=== PATIENT | male | born 1990 | race African-American/Black ===

== ENCOUNTER 2017-06-18 16:39 | Emergency (ER) | payer SELFPAY ==
[~2017-06-18] VITALS: Ht 162.6 cm; Wt 61.2 kg
[2017-06-18 16:52] VITALS: BP 111/59
[2017-06-18] MEDS ORDERED: IBUPROFEN 800 MG TABLET. PO ONE (17:00)
--- NOTE | 2017-06-18 17:23 | PHYS DOC ---
Past Medical History Past Medical History: No Pertinent History Past Surgical History: No Surgical History Alcohol Use: None Drug Use: None Adult General Chief Complaint Chief Complaint: ANKLE PROBLEM HPI HPI Patient is a 27 year old male presents to the emergency department with a history of right lower back pain, bilateral leg pain after playing soccer. Patient states it has been a while since he has played. He is also having right medial ankle pain after falling up the stairs. He denies knee pain or discomfort. Patient has 2+ peripheral pulses, cap refill brisk < 2 seconds, good sensation noted to the toes. Review of Systems Review of Systems Constitutional: Denies fever or chills [] Eyes: Denies change in visual acuity, redness, or eye pain [] HENT: Denies nasal congestion or sore throat [] Respiratory: Denies cough or shortness of breath [] Cardiovascular: No additional information not addressed in HPI [] GI: Denies abdominal pain, nausea, vomiting, bloody stools or diarrhea [] : Denies dysuria or hematuria [] Musculoskeletal: right lower back pain, bilateral leg pain and right ankle pain Integument: Denies rash or skin lesions [] Neurologic: Denies headache, focal weakness or sensory changes [] Endocrine: Denies polyuria or polydipsia [] All other systems were reviewed and found to be within normal limits, except as documented in this note. Current Medications Current Medications Current Medications Medications (Trade) Dose Ordered Sig/[facility] Start Time Stop Time Status Last Admin Dose Admin Ibuprofen (Motrin) 800 mg 1X ONCE 06/18/17 17:00 06/18/17 17:01 DC Allergies Allergies Allergies Coded Allergies Type Severity Reaction Last Updated Verified No Known Drug Allergies 06/18/17 No Physical Exam Physical Exam Constitutional: Well developed, well nourished, no acute distress, non-toxic appearance. [] HENT: Normocephalic, atraumatic, bilateral external ears normal, oropharynx moist, no oral exudates, nose normal. [] Eyes: PERRLA, EOMI, conjunctiva normal, no discharge. [] Neck: Normal range of motion, no tenderness, supple, no stridor. [] Cardiovascular:Heart rate regular rhythm Lungs & Thorax: no respiratory distress Skin: Warm, dry, no erythema, no rash. [] Back: No tenderness Extremities: Right medial ankle tenderness, no cyanosis, no clubbing, ROM intact , no edema. Slight swelling noted, no bruising or discoloration noted. Peripheral pulses 2+ cap refill brisk < 2 seconds. Good sensation noted to the toes. Neurologic: Alert and oriented X 3, normal motor function, normal sensory function, no focal deficits noted. [] Psychologic: Affect normal, judgement normal, mood normal. [] Current Patient Data Vital Signs Vital Signs Date Time Temp Pulse Resp B/P (MAP) Pulse Ox O2 Delivery O2 Flow Rate FiO2 06/18/17 16:52 98.0 93 16 99 Room Air 98.0 EKG EKG [] Radiology/Procedures Radiology/Procedures [] Course & Med Decision Making Course & Med Decision Making Pertinent Labs and Imaging studies reviewed. (See chart for details) Right ankle x-ray negative for fracture per Dr Andino. Patient will be placed in ector wrap and air stirrup splint. Recommended to wear the ector wrap for the next 5 -7 days and Wear the air stirrup splint for the next 7-10 days. Ice packs on 20 minutes and off 20 minutes several times a day. Elevation as much as possible. Ibuprofen 800 mg every 8 hours with food, stop taking if you develop upset stomach. Patient was provided with x-ray results. I've spoken with the patient and/or caregivers. I've explained the patient's condition, diagnosis and treatment plan based on information available to me at this time. I've answered the patient's and/or caregivers questions and addressed any concerns. The patient and/or caregivers have a good understanding the patient's diagnosis, condition and treatment plan as can be expected at this point. Vital signs have been stabilized. The patient's condition is stable for discharge from the emergency department. The patient will pursue further outpatient evaluation with her primary care provider or other designated consulting physician as outlined in the discharge instructions. Patient and/or caregivers are agreeable to this plan of care and follow-up instructions have been explained in detail. The patient and/or caregivers have received these instructions in written format and expressed understanding of these discharge instructions. The patient and her caregivers are aware that if any significant change in condition or worsening of symptoms should prompt him to immediately return to this of the closest emergency department. If an emergent department is not readily available I would encourage him to call 911. [] Dragon Disclaimer Dragon Disclaimer This electronic medical record was generated, in whole or in part, using a voice recognition dictation system. Departure Departure Impression: Primary Impression: Muscle strain Additional Impression: Right ankle sprain Disposition: 01 HOME, SELF-CARE Condition: STABLE Referrals: UZAIR MAN II, MD Patient Instructions: Ankle Sprain, [id number], Muscle Strain Additional Instructions: Activity as tolerated Ibuprofen 800 mg every 8 hours with food, stop taking if you develop upset stomach Ice packs on 20 minutes and off 20 minutes several times a day Elevation as much as possible Wear the ector wrap for the next 5-7 days Wear the air stirrup splint for the next 7-10 days Followup with orthopedic in 5-7 days Return to emergency department as needed for signs and symptoms that become worse. Problem Qualifiers Additional Impression: Right ankle sprain Encounter type: initial encounter Involved ligament of ankle: unspecified ligament Qualified Codes: S93.401A - Sprain of unspecified ligament of right ankle, initial encounter RD LIM FERRY OPERATOR Jun 18, 2017 17:22
--- NOTE | 2017-06-19 08:10 | RAD ---
EXAM: Right ankle, 3 views. HISTORY: Fall. COMPARISON: None. FINDINGS: Frontal, lateral and mortise views of the right ankle are obtained. There is no fracture, dislocation or subluxation. The ankle mortises intact. There is no osteochondral lesion. IMPRESSION: No acute osseous finding.
== END 2017-06-18 17:44 | disposition home or self-care (01) ==
LOC: ER 16:39
DX: S39.012A Strain of muscle, fascia and tendon of lower back, initial encounter (principal); S93.401A Sprain of unspecified ligament of right ankle, initial encounter; M79.605 Pain in left leg; W10.9XXA Fall (on) (from) unspecified stairs and steps, initial encounter; Y93.89 Activity, other specified; X58.XXXA Exposure to other specified factors, initial encounter; Y93.66 Activity, soccer; Y92.89 Other specified places as the place of occurrence of the external cause; Y99.8 Other external cause status
CPT/HCPCS: 29515; 73610; 99284-25

== ENCOUNTER 2017-09-03 16:56 | Emergency (ER) | payer OTHER | END 2017-09-03 17:33 | disposition home or self-care (01) | LOC: ER 16:56 | DX: H10.9 Unspecified conjunctivitis (principal) | CPT/HCPCS: 99283 ==

== ENCOUNTER 2017-09-04 20:16 | Emergency (ER) | payer OTHER | END 2017-09-04 20:35 | disposition home or self-care (01) | LOC: ER 20:16 | DX: H10.33 Unspecified acute conjunctivitis, bilateral (principal) | CPT/HCPCS: 99283 ==